=== PATIENT | male | born 1985 | race Caucasian/White ===

== ENCOUNTER 2016-09-26 23:27 | Emergency (ER) | payer OTHER ==
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
[~2016-09-26 23:27] MED LIST: ALBUTEROL17 GM INH; DOXYCYCLINE HY100 M3 PO; DOXYCYCLINE PO; LORTAB 5/500 TA1 TA1 PO; LORTAB 7.51 TAB PO; NAPROXEN500 M1 PO; ORUDIS75 M1 DOB; PREDNISONE PO; PROVENTIL17 GM INH; ROBAXIN500 MG PO; VICODIN 5/1 TAB 5/50 PO; VOLTAREN75 MG PO
== END 2016-09-27 03:09 | disposition home or self-care (01) ==
LOC: CED 23:27
DX: S39.012A Strain of muscle, fascia and tendon of lower back, initial encounter (principal); S29.012A Strain of muscle and tendon of back wall of thorax, initial encounter; J45.909 Unspecified asthma, uncomplicated; F17.200 Nicotine dependence, unspecified, uncomplicated; Z79.899 Other long term (current) drug therapy; V43.52XA Car driver injured in collision with other type car in traffic accident, initial encounter; Y92.410 Unspecified street and highway as the place of occurrence of the external cause
CPT/HCPCS: 72072; 72100; 99283